=== PATIENT | female | born 1945 | race Caucasian/White ===

== ENCOUNTER 2018-12-28 12:30 | Day surgery (SDC) | payer OTHER ==
[~2018-12-28 12:30] MED LIST: PROPOFOL 200 MG INJ
[2018-12-28] MEDS ORDERED: LIDOCAINE 2% (SDV) 5 ML INJ ×2 (14:26)
[2018-12-28] MEDS ORDERED: LABETALOL HCL 20MG INJ IV (14:30)
[2018-12-28] MEDS ORDERED: hydrALAzine 20 MG INJ IV (14:30)
[2018-12-28] MEDS ORDERED: ONDANSETRON 4 MG INJ IV (14:30)
[2018-12-28] MEDS ORDERED: FENTAnyl 50 MCG/ML VIAL IV (14:30)
[2018-12-28] MEDS ORDERED: EPHEDrine SULFATE 50 MG/5 ML SYG IV (14:30)
== END 2018-12-28 16:51 | disposition home or self-care (01) ==
LOC: GIL 12:30
DX: Z12.11 Encounter for screening for malignant neoplasm of colon (principal); K64.4 Residual hemorrhoidal skin tags; K64.8 Other hemorrhoids; K57.30 Diverticulosis of large intestine without perforation or abscess without bleeding; I10 Essential (primary) hypertension; E11.9 Type 2 diabetes mellitus without complications
CPT/HCPCS: 43239; 82962; 88305; 88312